=== PATIENT | male | born 1965 | race Caucasian/White ===

== ENCOUNTER 2018-03-06 08:37 | Outpatient (CLI) | payer OTHER ==
[2018-03-06 11:29] LABS: BASOPHILS % (AUTO) 0.3 %; EOSINOPHILS # (AUTO) 0.4 10^3/uL (0.0-0.7); EOSINOPHILS % (AUTO) 5.7 %; HGB - HEMOGLOBIN 14.4 g/dL (14.0-18.0); LYMPHOCYTES # (AUTO) 3.2 10^3/uL (1.5-3.5); LYMPHOCYTES % (AUTO) 51.3 %; MEAN CORPUSCULAR HEMOGLOBIN 29.1 pg (27.0-31.0); MEAN CORPUSCULAR HGB CONC 33.7 g/dL (32.0-36.0); MEAN CORPUSCULAR VOLUME 86.4 fL (80.0-94.0); MEAN PLATELET VOLUME 8.5 fL (7.4-11.4); MONOCYTES # (AUTO) 0.4 10^3/uL (0.0-1.0); MONOCYTES % (AUTO) 7.1 %; NEUTROPHILS # (AUTO) 2.2 10^3/uL (1.5-6.6); NEUTROPHILS % (AUTO) 35.6 %; PLT - PLATELET COUNT 219 10^3/uL (130-450); RED BLOOD COUNT 4.96 10^6/uL (4.70-6.10); RED CELL DISTRIBUTION WIDTH 13.6 % (12.0-15.0); WHITE BLOOD COUNT 6.2 x10^3/uL (4.8-10.8)
[2018-03-06 19:15] LABS: ALBUMIN 4.3 g/dL (3.2-5.5); ALBUMIN/GLOBULIN RATIO 1.4 (1.0-2.2); ALKALINE PHOSPHATASE 48 IU/L (42-121); ALT ALANINE AMINOTRANSFERASE 27 IU/L (10-60); AST ASPARTATE AMINOTRANSFERASE 28 IU/L (10-42); BILIRUBIN,TOTAL 0.5 mg/dL (0.2-1.0); BUN - BLOOD UREA NITROGEN 18 mg/dL (6-20); CALCIUM 9.5 mg/dL (8.5-10.3); CARBON DIOXIDE - CO2 27 mmol/L (21-32); CHLORIDE 102 mmol/L (101-111); CHOL/HDL RATIO 3.8 (<5.0); CHOLESTEROL 211 mg/dL; CREATININE 0.9 mg/dL (0.6-1.2); GFR - MDRD 89 (>89); GLUCOSE 104 mg/dL (70-100); HDL CHOLESTEROL 55 mg/dL; LDL CHOLESTEROL,CALCULATED 131 mg/dL; LDL/HDL RATIO 2.4 (<3.6); SODIUM 140 mmol/L (135-145); TOTAL PROTEIN 7.4 g/dL (6.7-8.2); VLDL CHOLESTEROL 25 mg/dL
== END 2018-03-06 08:38 | disposition home or self-care (01) ==
LOC: LAB.F 08:37
PROVIDERS: ATTEND Nurse Practitioner Family
DX: I10 Essential (primary) hypertension (principal); E78.1 Pure hyperglyceridemia; Z12.5 Encounter for screening for malignant neoplasm of prostate
CPT/HCPCS: 36415; 80053; 80061; 83721; 84153; 84443; 85025

== ENCOUNTER 2018-08-19 11:40 | Day surgery (SDC) | payer OTHER ==
[2018-08-19] MEDS ORDERED: LACTATED RINGERS 1,000 ML IV ONE (12:00)
[2018-08-19] MEDS ORDERED: fentaNYL 250 MCG/5 ML VIAL IVP ONE (13:18)
[2018-08-19] MEDS ORDERED: MIDAZOLAM 2 MG/2 ML VIAL IVP ONE (13:18)
[2018-08-19] MEDS ORDERED: PROPOFOL 200 MG/20 ML VIAL IVP ONE (13:37)
[2018-08-19] MEDS ORDERED: LIDOCAINE-MPF 2% 5 ML VIAL IM ONE (13:37)
[2018-08-19 14:47] VITALS: BP 104/74
== END 2018-08-19 11:41 | disposition home or self-care (01) ==
LOC: SDS 11:40
PROVIDERS: ATTEND Internal Medicine Gastroenterology
PROC: 0DBH8ZZ Excision of Cecum, Via Natural or Artificial Opening Endoscopic (ICD-10-PCS; principal; 2018-08-19 12:45)
DX: Z12.11 Encounter for screening for malignant neoplasm of colon (principal); D12.0 Benign neoplasm of cecum; F10.10 Alcohol abuse, uncomplicated; N40.1 Benign prostatic hyperplasia with lower urinary tract symptoms; N13.8 Other obstructive and reflux uropathy; I10 Essential (primary) hypertension; K21.9 Gastro-esophageal reflux disease without esophagitis; E78.00 Pure hypercholesterolemia, unspecified; E78.5 Hyperlipidemia, unspecified; J30.9 Allergic rhinitis, unspecified; M25.511 Pain in right shoulder; Z87.891 Personal history of nicotine dependence
CPT/HCPCS: 45380; J3010; J7120

== ENCOUNTER 2018-09-04 17:32 | Emergency (ER) | payer OTHER ==
[2018-09-04] MEDS ORDERED: SODIUM CHLORIDE 0.9% 1,000 ML IV ONE (17:57)
[2018-09-04] MEDS ORDERED: ONDANSETRON 4 MG/2 ML VIAL IVP STA (17:57)
[2018-09-04 18:09] LABS: BILIRUBIN,URINE NEGATIVE (NEGATIVE); GLUCOSE, URINE (UA) NEGATIVE (NEGATIVE); KETONES,URINE (UA) TRACE mg/dL (NEGATIVE); LEUKOCYTE ESTERASE, URINE NEGATIVE (NEGATIVE); NITRITE,URINE NEGATIVE (NEGATIVE); OCCULT BLOOD,URINE TRACE-INTA (NEGATIVE); PROTEIN,URINE NEGATIVE (NEGATIVE); UROBILINOGEN,URINE 0.2 (NORMAL) E.U./dL (NORMAL)
[2018-09-04 18:11] LABS: CLARITY,URINE CLEAR (CLEAR)
[2018-09-04] MEDS ORDERED: KETOROLAC 30 MG/ML VIAL IVP STA (18:11)
[2018-09-04 18:25] LABS: BASOPHILS % (AUTO) 0.2 %; EOSINOPHILS % (AUTO) 0.5 %; HGB - HEMOGLOBIN 14.9 g/dL (14.0-18.0); LYMPHOCYTES # (AUTO) 2.1 10^3/uL (1.5-3.5); LYMPHOCYTES % (AUTO) 23.9 %; MEAN CORPUSCULAR HEMOGLOBIN 28.8 pg (27.0-31.0); MEAN CORPUSCULAR HGB CONC 32.5 g/dL (32.0-36.0); MEAN CORPUSCULAR VOLUME 88.6 fL (80.0-94.0); MONOCYTES # (AUTO) 0.5 10^3/uL (0.0-1.0); MONOCYTES % (AUTO) 6.1 %; NEUTROPHILS % (AUTO) 69.1 %; PLT - PLATELET COUNT 232 10^3/uL (130-450); RED BLOOD COUNT 5.17 10^6/uL (4.70-6.10); RED CELL DISTRIBUTION WIDTH 13.1 % (12.0-15.0); WHITE BLOOD COUNT 8.7 x10^3/uL (4.8-10.8)
[2018-09-04 18:32] LABS: ALBUMIN 4.7 g/dL (3.2-5.5); ALBUMIN/GLOBULIN RATIO 1.4 (1.0-2.2); BILIRUBIN,TOTAL 0.8 mg/dL (0.2-1.0); CALCIUM 10.3 mg/dL (8.5-10.3); CREATININE 0.8 mg/dL (0.6-1.2); TOTAL PROTEIN 8.1 g/dL (6.7-8.2)
--- NOTE | 2018-09-04 18:52 | ED Physician Documentation ---
History of Present Illness - Stated complaint Stated Complaint: BODY PX/VOM/BLOODY STOOL - Chief complaint Chief Complaint: General - History obtained from History obtained from: Patient, Family - History of Present Illness Timing: How many days ago (2) Pain level max: 9 Pain level now: 9 - Additonal information Additional information: 53-year-old male was recently in [place]. He states that he is having all over body pain. Nausea and vomiting. Blood in the stool. Nothing makes it better or worse. Has not taken anything. Review of Systems Constitutional: reports: Chills, Myalgias. denies: Fever Throat: denies: Sore throat Respiratory: denies: Cough, Wheezing : denies: Dysuria Skin: denies: Rash Musculoskeletal: denies: Neck pain, Back pain Neurologic: denies: Headache PD PAST MEDICAL HISTORY - Past Medical History Past Medical History: Yes Cardiovascular: None Respiratory: None Endocrine/Autoimmune: None GI: None : Kidney stones HEENT: None Psych: None Musculoskeletal: None Derm: None - Past Surgical History Past Surgical History: Yes - Present Medications Home Medications: Ambulatory Orders Medication Instructions Recorded Confirmed Hydrocodone/Acetaminophen 1 - 2 each PO Q6H PRN #14 tablet 09/04/18 [Hydrocodon-Acetaminophen 5-325] Ondansetron Odt [Zofran] 4 mg TL Q6H PRN #10 tablet 09/04/18 - Allergies Allergies/Adverse Reactions: Allergies Allergy/AdvReac Type Severity Reaction Status Date / Time lisinopril Allergy Severe ANGIOEDEMA Verified 09/04/18 17:39 bee pollen Allergy Anaphylaxis Verified 09/04/18 17:39 - Social History Does the pt smoke?: No Smoking Status: Never smoker Does the pt drink ETOH?: Yes Does the pt have substance abuse?: No - Immunizations Immunizations are current?: No - POLST Patient has POLST: No PD ED PE NORMAL - Vitals Vital signs reviewed: Yes - General General: Alert and oriented X 3, No acute distress, Well developed/nourished - HEENT HEENT: PERRL, Moist mucous membranes - Neck Neck: Supple, no meningeal sign - Cardiac Cardiac: RRR, Strong equal pulses - Respiratory Respiratory: No respiratory distress, Clear bilaterally - Abdomen Abdomen: Soft, Non tender, Non distended, Other (diffuse TTP, no peritoneal sig ns) - Derm Derm: Warm and dry - Extremities Extremities: No edema, No calf tenderness / cord - Neuro Neuro: Alert and oriented X 3 - Psych Psych: Normal mood, Normal affect Results - Vitals Vitals: Vital Signs - 24 hr 09/04/18 09/04/18 09/04/18 17:35 19:31 20:42 Temperature 36.7 C 36.4 C L 37.0 C Heart Rate 80 63 61 Respiratory 16 20 16 Rate Blood Pressure 136/90 H 121/85 H 121/84 H O2 Saturation 96 97 97 Oxygen O2 Source Room air - Labs Labs: Laboratory Tests 09/04/18 09/04/18 09/04/18 17:44 18:12 18:12 WBC 8.7 RBC 5.17 Hgb 14.9 Hct 45.8 MCV 88.6 MCH 28.8 MCHC 32.5 RDW 13.1 Plt Count 232 MPV 10.0 Neut # (Auto) 6.0 Lymph # (Auto) 2.1 Payne # (Auto) 0.5 Eos # (Auto) 0.0 Baso # (Auto) 0.0 Absolute Nucleated RBC 0.00 Nucleated RBC % 0.0 Sodium 139 Potassium 4.0 Chloride 101 Carbon Dioxide 26 Anion Gap 12.0 BUN 17 Creatinine 0.8 Estimated GFR (MDRD) 101 Glucose 116 H Calcium 10.3 Total Bilirubin 0.8 AST 30 ALT 31 Alkaline Phosphatase 59 Total Protein 8.1 Albumin 4.7 Globulin 3.4 Albumin/Globulin Ratio 1.4 Lipase 51 Urine Color YELLOW Urine Clarity CLEAR Urine pH 6.0 Ur Specific [place] 1.020 Urine Protein NEGATIVE Urine Glucose (UA) NEGATIVE Urine Ketones TRACE Urine Occult Blood TRACE-INTA Urine Nitrite NEGATIVE Urine Bilirubin NEGATIVE Urine Urobilinogen 0.2 (NORMAL) Ur Leukocyte Esterase NEGATIVE Ur Microscopic Review NOT INDICATED Urine Culture Comments NOT INDICATED PD MEDICAL DECISION MAKING - ED course Complexity details: reviewed results, re-evaluated patient, considered differential, d/w patient, d/w family ED course: 53-year-old male is well-appearing, nontoxic. Afebrile. Feels better after IV fluids, pain medication and nausea medication. Tolerating p.o. without difficulty. Abdomen remains soft, nontender nondistended. No evidence of diverticulitis. Likely that this is a viral syndrome. He is not having diarrhea but did have one episode of mucousy stool with blood. We will hold antibiotics at this time and see how he progresses over the next 24 to 48 hours. If he worsens he will return and we will consider antibiotics at that stage. Patient and family counseled regarding signs and symptoms for which I believe and urgent re-evaluation would be necessary. Patient with good understanding of and agreement to plan and is comfortable going home at this time This document was made in part using voice recognition software. While efforts are made to proofread this document, sound alike and grammatical errors may occur. Departure - Departure Disposition: 01 Home, Self Care Clinical Impression: Viral syndrome Condition: Good Health Concerns: vomiting Plan of Treatment: zofran, IVF, pain control Care Goals: improve above Assessment: improved Instructions: ED Viral Syndrome Follow-Up: your,doctor in 3 days [Other] Prescriptions: Hydrocodone/Acetaminophen [Hydrocodon-Acetaminophen 5-325] 1 - 2 each PO Q6H PRN #14 tablet PRN Reason: pain Ondansetron Odt [Zofran] 4 mg TL Q6H PRN #10 tablet PRN Reason: Nausea / Vomiting Comments: Drink plenty of fluids and rest. Return if you worsen. Follow-up with your doctor for further care. Do not drink alcohol or drive while on narcotic pain medicine. Note that many narcotic pain relievers also contain tylenol/acetaminophen. Please ensure that your total dose of acetaminophen from all sources does not exceed 3 grams (3000mg) per day. You may constipated on this medication, take a stool softener such as "Colace" twice a day while you are on it. Also recommend a [id number] laxative such as senna or MiraLAX any day that you do not have a bowel movement. If you received narcotic pain medication in the emergency department, do not drive or operate machinery for the next 24 hours. Discharge Date/Time: 09/04/18 20:56
[2018-09-04] MEDS ORDERED: MAG HYDROX/AL HYDROX/SIMETH 30 ML UDC PO STA (19:48)
[2018-09-04] MEDS ORDERED: MORPHINE 2 MG/ML CARPUJECT IVP STA (19:48)
[2018-09-04 20:43] VITALS: BP 121/84
[2018-09-04] MEDS ORDERED: ONDANSETRON ODT 4 MG Prepack 2 TL PRN (20:51)
== END 2018-09-04 20:56 | disposition home or self-care (01) ==
LOC: ED 17:32
DX: B34.9 Viral infection, unspecified (principal)
CPT/HCPCS: 36415; 80053; 81003; 83690; 85025; 96361; 96374; 96375; 99283; 99284; A9270; 81001; 87086

== ENCOUNTER 2019-01-27 00:44 | Outpatient (CLI) | payer OTHER | END 2019-01-27 00:45 | disposition critical access hospital (66) | LOC: EMS 00:44 | PROVIDERS: ATTEND Surgery | DX: S01.112A Laceration without foreign body of left eyelid and periocular area, initial encounter (principal); W22.01XA Walked into wall, initial encounter; Y93.01 Activity, walking, marching and hiking | CPT/HCPCS: A0425; A0429 ==

== ENCOUNTER 2019-01-27 04:11 | Outpatient (CLI) | payer OTHER | END 2019-01-27 04:12 | disposition short-term general hospital (02) | LOC: EMS 04:11 | PROVIDERS: ATTEND Surgery | DX: S01.112A Laceration without foreign body of left eyelid and periocular area, initial encounter (principal); S05.92XA Unspecified injury of left eye and orbit, initial encounter; W22.01XA Walked into wall, initial encounter | CPT/HCPCS: A0425; A0429 ==

== ENCOUNTER 2019-06-04 09:14 | Outpatient (CLI) | payer BC ==
[2019-06-04 17:11] LABS: BASOPHILS % (AUTO) 0.6 %; EOSINOPHILS # (AUTO) 0.3 10^3/uL (0.0-0.7); EOSINOPHILS % (AUTO) 5.1 %; HGB - HEMOGLOBIN 13.8 g/dL (14.0-18.0); LYMPHOCYTES % (AUTO) 45.4 %; MEAN CORPUSCULAR HEMOGLOBIN 28.6 pg (27.0-31.0); MEAN CORPUSCULAR HGB CONC 31.7 g/dL (32.0-36.0); MEAN CORPUSCULAR VOLUME 90.5 fL (80.0-94.0); MEAN PLATELET VOLUME 10.8 fL (7.4-11.4); MONOCYTES # (AUTO) 0.4 10^3/uL (0.0-1.0); MONOCYTES % (AUTO) 6.8 %; NEUTROPHILS # (AUTO) 2.7 10^3/uL (1.5-6.6); NEUTROPHILS % (AUTO) 41.8 %; PLT - PLATELET COUNT 271 10^3/uL (130-450); RED BLOOD COUNT 4.82 10^6/uL (4.70-6.10); RED CELL DISTRIBUTION WIDTH 13.4 % (12.0-15.0); WHITE BLOOD COUNT 6.5 x10^3/uL (4.8-10.8)
[2019-06-04 17:30] LABS: ALBUMIN 4.3 g/dL (3.2-5.5); ALBUMIN/GLOBULIN RATIO 1.4 (1.0-2.2); ALKALINE PHOSPHATASE 50 IU/L (42-121); ALT ALANINE AMINOTRANSFERASE 24 IU/L (10-60); AST ASPARTATE AMINOTRANSFERASE 25 IU/L (10-42); BILIRUBIN,TOTAL 0.6 mg/dL (0.2-1.0); BUN - BLOOD UREA NITROGEN 25 mg/dL (6-20); CALCIUM 9.3 mg/dL (8.5-10.3); CARBON DIOXIDE - CO2 27 mmol/L (21-32); CHLORIDE 104 mmol/L (101-111); CHOL/HDL RATIO 4.4 (<5.0); CHOLESTEROL 197 mg/dL; CREATININE 0.8 mg/dL (0.6-1.2); GLUCOSE 108 mg/dL (70-100); HDL CHOLESTEROL 45 mg/dL; LDL CHOLESTEROL,CALCULATED 118 mg/dL; LDL/HDL RATIO 2.6 (<3.6); SODIUM 136 mmol/L (135-145); TOTAL PROTEIN 7.3 g/dL (6.7-8.2); VLDL CHOLESTEROL 34 mg/dL
== END 2019-06-04 09:15 | disposition home or self-care (01) ==
LOC: LAB.S 09:14
PROVIDERS: ATTEND Physician Assistant
DX: I10 Essential (primary) hypertension (principal); Z79.899 Other long term (current) drug therapy; E78.70 Disorder of bile acid and cholesterol metabolism, unspecified
CPT/HCPCS: 36415; 80053; 80061; 83721; 84443; 85025

== ENCOUNTER 2020-05-07 18:23 | Emergency (ER) | payer BC ==
[2020-05-07] MEDS ORDERED: GLUCAGON 1 MG/ML VIAL IVP STA (18:31)
--- NOTE | 2020-05-07 18:32 | ED Physician Documentation ---
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 Since then he has had occasional problems with esophageal food impactions. It had been more frequent closer to the tracheostomy but now seems to be still having every couple of months. He usually is able to clear it on his own by just drinking water and giving it some time but this time he has not. He has had a sensation of stuck steak sandwich in his chest since he ate a steak sandwich at noon today. He cannot swallow his secretions or drink any water because it comes right back up. Review of Systems Ten Systems: 10 systems reviewed and negative Constitutional: reports: Reviewed and negative Ears: reports: Reviewed and negative Nose: reports: Reviewed and negative PD PAST MEDICAL HISTORY - Past Medical History Cardiovascular: None Respiratory: None Endocrine/Autoimmune: None GI: None : Kidney stones HEENT: None Psych: None Musculoskeletal: None Derm: None - Past Surgical History Past Surgical History: Yes - Present Medications Home Medications: Ambulatory Orders Medication Instructions Recorded Confirmed Hydrocodone/Acetaminophen 1 - 2 each PO Q6H PRN #14 tablet 09/04/18 [Hydrocodon-Acetaminophen 5-325] Ondansetron Odt [Zofran] 4 mg TL Q6H PRN #10 tablet 09/04/18 - Allergies Allergies/Adverse Reactions: Allergies Allergy/AdvReac Type Severity Reaction Status Date / Time lisinopril Allergy Severe ANGIOEDEMA Verified 01/27/19 01:20 bee pollen Allergy Anaphylaxis Verified 01/27/19 01:20 - Social History Does the pt smoke?: No Smoking Status: Never smoker Does the pt drink ETOH?: Yes Does the pt have substance abuse?: No - Immunizations Immunizations are current?: No - POLST Patient has POLST: No PD ED PE NORMAL - Vitals Vital signs reviewed: Yes - General General: Alert and oriented X 3, No acute distress - HEENT HEENT: Pharynx benign - Neck Neck: Supple, no meningeal sign, No bony TTP - Cardiac Cardiac: RRR, No murmur - Respiratory Respiratory: No respiratory distress, Clear bilaterally - Abdomen Abdomen: Soft, Non tender - Back Back: No CVA TTP, No spinal TTP - Derm Derm: Normal color, Warm and dry - Extremities Extremities: No edema, No calf tenderness / cord - Neuro Neuro: Alert and oriented X 3, Normal speech Results - Vitals Vitals: Vital Signs - 24 hr 05/07/20 05/07/20 18:32 19:18 Temperature 36.8 C Heart Rate 90 89 Respiratory 18 18 Rate Blood Pressure 138/92 H 120/97 H O2 Saturation 99 99 Oxygen O2 Source Room air PD MEDICAL DECISION MAKING - ED course ED course: 55-year-old gentleman with recurrent esophageal food bolus impactions presents with same. Initially treated with glucagon and then nitro, potentially initially without relief but subsequently he was able to tolerate liquids. We had actually started the process of mobilizing the surgeon to take him to the OR but after he apparently passed the food impaction this was called off but discussed with him that he would still need a nonurgent endoscopy and he should be on a soft diet until then. Departure - Departure Disposition: 01 Home, Self Care Clinical Impression: Esophageal obstruction due to food impaction Condition: Stable Record reviewed to determine appropriate education?: Yes Instructions: ED Foreign Body Esophageal Rslv Follow-Up: Chun Marshall MD [Provider Admit Priv/Credential] - Comments: As discussed, you still need to follow-up with the surgeon for scheduling of a nonurgent endoscopy. Until then avoid steak, and I would do a liquid diet for the next couple of days. Return if worse.
[2020-05-07] MEDS ORDERED: NITROGLYCERIN SL 0.4 MG TABLET SL STA (18:54)
[2020-05-07 19:19] VITALS: BP 120/97
== END 2020-05-07 20:00 | disposition home or self-care (01) ==
LOC: ED 18:23
DX: T18.128A Food in esophagus causing other injury, initial encounter (principal); X58.XXXA Exposure to other specified factors, initial encounter
CPT/HCPCS: 96374; 99283; 99284; A9270

== ENCOUNTER 2021-12-08 10:44 | Outpatient (CLI) | payer BC ==
[2021-12-12 14:08] LABS: FREE TESTOSTERONE(DIRECT) 6.2 pg/mL (7.2-24.0)
== END 2021-12-08 10:45 | disposition home or self-care (01) ==
LOC: LAB.S 10:44
PROVIDERS: ATTEND Physician Assistant Medical
DX: N52.9 Male erectile dysfunction, unspecified (principal); Z12.5 Encounter for screening for malignant neoplasm of prostate
CPT/HCPCS: 36415; 84153; 84402; 84403

== ENCOUNTER 2022-05-19 14:03 | Day surgery (SDC) | payer BC ==
[2022-05-19] MEDS ORDERED: NITROGLYCERIN SL 0.4 MG TABLET SL STA (14:46)
--- OUTSIDE RECORDS SUMMARY | 2022-05-19 14:51 | EXTERNAL MEDICAL SUMMARY RPT | Continuity of Care Document ---
:1965 Author Organization [facility] Address [address] [place] [address] Phone Care Team Providers Name Role Phone Unavailable Unavailable Unavailable Abel Tellers Supervisor Enp, Erika Unavailable Unavailable Allergies No information. Encounters No information. Functional Status No information. Immunizations No information. Medications date description facility 2022-05-19 00:00 alfuzosin [facility] [place] 2022-05-19 00:00 alfuzosin [facility] [place] 2022-05-19 00:00 alfuzosin [facility] [place] 2022-05-19 00:00 alfuzosin [facility] [place] Problems date description facility 2022-05-19 00:00 Osteoarthritis [facility] 2022-05-19 00:00 Foreign body in esophagus [facility] 2022-05-19 00:00 Osteoarthrosis, unspecified whether [facility] & generalized or localized, involving [facility] [place] unspecified site 2022-05-19 00:00 Lateral epicondylitis [facility] 2022-05-19 00:00 Olecranon bursitis [facility] 2022-05-19 00:00 Unspecified osteoarthritis, [facility] & unspecified site [facility] 2022-05-19 00:00 Other bursitis of elbow, right [facility] & elbow [facility] 2022-05-19 00:00 Lateral epicondylitis, unspecified [facility] elbow [facility] 2022-05-19 00:00 Unspecified foreign body in [facility] & esophagus causing other injury, [facility] [place] initial encounter Procedures date description facility 2022-05-19 00:00 Visit Code Hold [facility] [place] Results/Labs No information. Social History date description facility 2022-05-19 00:00 Former smoker [facility] [place] Vital Signs date measurement value units 2022-05-19 00:00 BMI 23.93 kg/m2 2022-05-19 00:00 BP_diastolic 76 mmHg 2022-05-19 00:00 BP_systolic 107 mmHg 2022-05-19 00:00 heart_rate 62 /min 2022-05-19 00:00 height_metric 168.91 cm 2022-05-19 00:00 height_standard 66.5 in 2022-05-19 00:00 respiration_rate 16 /min 2022-05-19 00:00 temperature_metric 36.39 C 2022-05-19 00:00 temperature_standard 97.5 F 2022-05-19 00:00 weight_metric 68.04 kg 2022-05-19 00:00 weight_standard 150 lb
--- NOTE | 2022-05-19 15:29 | ED Physician Documentation ---
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 He had this in 2016 and since then he has had food gets stuck on the way down and he has had 2 episodes where food would not pass. He was treated in the emergency department with nitroglycerin and soda and at that time he had resolution. He subsequently attempted the same maneuver when this recurred and at that time the bolus would not pass and he had had to go to the operating room. Review of Systems Constitutional: denies: Fever Eyes: denies: Decreased vision Ears: denies: Ear pain Nose: denies: Congestion Throat: denies: Sore throat Cardiac: reports: Chest pain / pressure. denies: Palpitations Respiratory: denies: Dyspnea, Cough GI: reports: Vomiting. denies: Abdominal Pain, Nausea : denies: Dysuria, Frequency PD PAST MEDICAL HISTORY - Past Medical History Cardiovascular: None Respiratory: None Endocrine/Autoimmune: None GI: None : Kidney stones HEENT: None Psych: None Musculoskeletal: None Derm: None - Past Surgical History Past Surgical History: Yes - Present Medications Home Medications: Ambulatory Orders Medication Instructions Recorded Confirmed Alfuzosin HCl [Alfuzosin HCl ER] 10 mg ORAL ONCE 05/19/22 05/19/22 Omeprazole 40 mg PO DAILY #30 cap 05/19/22 - Allergies Allergies/Adverse Reactions: Allergies Allergy/AdvReac Type Severity Reaction Status Date / Time lisinopril Allergy Severe ANGIOEDEMA Verified 08/14/21 14:27 bee pollen Allergy Anaphylaxis Verified 08/14/21 14:27 - Social History Does the pt smoke?: No Smoking Status: Never smoker Does the pt drink ETOH?: Yes Does the pt have substance abuse?: No - Immunizations Immunizations are current?: No - POLST Patient has POLST: No PD ED PE NORMAL - Vitals Vital signs reviewed: Yes (normal ) - General General: Alert and oriented X 3, No acute distress, Well developed/nourished - HEENT HEENT: Atraumatic, PERRL, EOMI - Neck Neck: Supple, no meningeal sign, No bony TTP - Cardiac Cardiac: RRR, No murmur - Respiratory Respiratory: No respiratory distress, Clear bilaterally - Abdomen Abdomen: Soft, Non tender - Back Back: No CVA TTP, No spinal TTP - Derm Derm: Normal color, Warm and dry, No rash - Extremities Extremities: No deformity, No edema - Neuro Neuro: Alert and oriented X 3, shelter monitor 2-12 intact, No motor deficit, No sensory deficit, Normal speech Eye Opening: Spontaneous Motor: Obeys Commands Verbal: Oriented GCS Score: 15 - Psych Psych: Normal mood, Normal affect Results - Vitals Vitals: Vital Signs - 24 hr 05/19/22 05/19/22 14:24 16:29 Temperature 36.8 C Heart Rate 74 67 Respiratory 18 16 Rate Blood Pressure 127/79 120/81 H O2 Saturation 98 97 Oxygen O2 Source Room air PD Medical Decision Making - ED course Complexity details: reviewed old records, reviewed results, re-evaluated patient, considered differential, d/w patient ED course: 57-year-old male with a prior history of esophageal food impaction has some esophageal food impaction again. He has had symptoms for 23 hours. He presents today with chest pain associated with food impaction and vomiting of anything that he puts into his mouth. Here in the emergency department we attempted nitroglycerin and soda without resolution. I consulted our surgeon Dr. Alonso who came to the emergency department and assumed care of the patient took the patient to the operating room for removal of esophageal food impaction. Departure - Departure Disposition: ED Transfer to [facility] Clinical Impression: Food impaction of esophagus Qualifiers: Encounter type: initial encounter Qualified Code(s): T18.128A - Food in esophagus causing other injury, initial encounter Discharge Date/Time: 05/19/22 16:49
[2022-05-19] MEDS ORDERED: PROPOFOL 200 MG/20 ML VIAL IVP ONE ×2 (15:54→16:33)
[2022-05-19] MEDS ORDERED: SODIUM CHLORIDE FLUSH 0.9% 10 ML SYRINGE IVP PRN (15:55)
[2022-05-19] MEDS ORDERED: SODIUM CHLORIDE 0.9% 1,000 ML IV SCH (16:00)
--- NOTE | 2022-05-19 16:05 | HISTORY & PHYSICAL EXAMINATION ---
Chief Complaint - Chief Complaint Chief Complaint: Food stuck in throat History of Present Illness - Admitted From Admitted From:: ED - History Obtained From Records Reviewed: Yes History obtained from: Patient Exam Limitations: None - History of Present Illness HPI Comment/Other: Eligio is a 57 year old male who suffered a blockage of his esophagus while eating a pork burrito yesterday at noon. This has happened to him ablut once a month and he has usually been able to clear the blockage with liquids. In July of last year he required endoscopic disimpaction. This recent event has not resolved so he brought himself to the ED for evaluation and management. Eligio denies SOB but has mild chest and back spasms when he vomits. He is unable to swallow his secretions. 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) : reports: Kidney stones, Other HEENT: reports: None Psych: reports: None Musculoskeletal: reports: None Derm: reports: None MRSA Hx?: No - POLST Patient has POLST: No Meds/Allgy - Home Medications Home Medications: Ambulatory Orders Medication Instructions Recorded Confirmed Alfuzosin HCl [Alfuzosin HCl ER] 10 mg ORAL ONCE 05/19/22 05/19/22 - Allergies Allergies/Adverse Reactions: Allergies Allergy/AdvReac Type Severity Reaction Status Date / Time lisinopril Allergy Severe ANGIOEDEMA Verified 08/14/21 14:27 bee pollen Allergy Anaphylaxis Verified 08/14/21 14:27 Review of Systems - Gastrointestinal Gastrointestinal: reports: Other (Unable to swallow secretions or food) Exam - Vital Signs Vital Signs: Vital Signs x48h Temp Pulse Resp BP Pulse Ox 05/19/22 14:24 98.2 F 74 18 127/79 98 - Physical Exam General Appearance: positive: Mild distress Eyes Bilateral: positive: Normal inspection, PERRL ENT: positive: ENT inspection nml, Pharynx nml Neck: positive: Other (Anterior scar from prior tracheostomy) Respiratory: positive: Chest non-tender, No respiratory distress, Breath sounds nml Cardiovascular: positive: Regular rate & rhythm, No murmur Peripheral Pulses: positive: 2+ Abdomen: positive: Non-tender, Nml bowel sounds, No distention Skin: positive: Color nml, No rash, Warm Extremities: positive: Non-tender, Full ROM, Nml appearance Neurologic/Psychiatric: positive: Oriented x3 Conclusion/Plan - Other Other Results/Comments: Assessment: 1) Meat impaction of esophagus Plan: 1) Endoscopic disimpaction with possible dilation under GETA Consent: Eligio has been counseled for the procedure, it's indications, risks, benefits and expected outcome as well as alternative therapies. We specifically discussed risks associated with anesthesia, injury to surrounding structures which may require additional surgery. Eligio understands, agrees, and consents to the proposed operative strategy and requests that we proceed with the procedure as outlined in our discussion. Ventura Alonso MD General Surgery Service
[2022-05-19] MEDS ORDERED: LIDOCAINE-PF 2% 10 ML AMP SUBQ ONE (16:33)
[2022-05-19] MEDS ORDERED: fentaNYL 100 MCG/2 ML VIAL ONE (16:33)
[2022-05-19] MEDS ORDERED: ONDANSETRON 4 MG/2 ML VIAL ONE (16:33)
[2022-05-19] MEDS ORDERED: MIDAZOLAM 2 MG/2 ML VIAL ONE (16:33)
[2022-05-19] MEDS ORDERED: SODIUM CHLORIDE FLUSH 0.9% 10 ML SYRINGE IVP SCH (17:00)
[2022-05-19] MEDS ORDERED: SUGAMMADEX 200 MG/2 ML VIAL IVP ONE (17:37)
--- NOTE | 2022-05-19 17:44 | OPERATIVE REPORT ---
Operative Report - Other Other Information/Narrative: SURGEON: Dipak Alonso MD, [facility] PREOPERATIVE DIAGNOSIS: Eligio is a 57 year old male with an esophageal obstruction due to a meat impaction POSTOPERATIVE DIAGNOSIS: Meat impaction distal esophagus; Distal esophageal narrowing NAME OF PROCEDURE: Esophagoscopy with disimpaction of the esophagus and dilation of the esophagus to 14 F using sequential wire-guided dilators ANESTHESIA: GETA DESCRIPTION OF PROCEDURE FOLLOWS: After consent for the procedure was obtained, the patient was brought to the operating room where, in the supine position GETA was administered. The patient was placed into the left lateral decubitus position with the head of the bed raised. A bite block was used to protect the teeth. A Pentax upper endoscope was gently inserted into the esophagus and the examination was begun. The esophageal mucosa was []normal. There was a large, fibrous meat bolus in the distal esophagus that was completely removed using multiple passes of a triple prong grasper to pull the meat from the esophagus out through the oral cavity. The Z line was at 38 cm and the GEJ was wide enough to permit passage of the endoscope into the gastric lumen. Fluid was aspirated and retroflexed view of the GEJ was normal. A guidewire was placed through the endoscope into the gastric lumen and the endoscope was removed. The esophagus was dilated to 14F using sequential savory dilators over the guidewire. The guidewire was removed and the endoscope reinserted. There was no evidence of food particles in the esophagus and the GEJ easily permitted passage of the endoscope into the gastric lumen. the endoscope was removed and the patient was awakened from GETA. he was brought to the in stable condition after tolerating the procedure well. ASSESSMENT: Meat impaction of the distal esophagus with narrowing of the GEJ. No evidence of esophagitis, neoplasm, or web so this may be early onset achalasia. RECOMMENDATION: Chew food thoroughly Drink plenty of fluids when swallowing If symptoms recur, UGI study should be considered and if abnormal, referral to GI Medicine for esophageal manometry. Ventura Alonso MD General Surgery Service
[2022-05-19] MEDS ORDERED: LACTATED RINGERS 1,000 ML IV ONE (17:52)
--- NOTE | 2022-05-19 18:03 | ANESTHESIA ---
Pre-Anesthesia VS, & Labs - Diagnosis food bolus - Procedure EGD Vital Signs: Temp Pulse Resp BP Pulse Ox O2 Flow Rate 36.0 C L 80 14 116/95 H 97 05/19/22 17:50 05/19/22 17:50 05/19/22 17:50 05/19/22 17:50 05/19/22 17:50 Height: 5 ft 8 in Weight (kg): 70.307 kg Body Mass Index: 23.6 BMI Classification: Normal - NPO >8 hours, Other Last Fluid Intake: 2hrs pre-op Last Food Intake: 1200 05/18/22 Home Medications and Allergies Home Medications: Ambulatory Orders Alfuzosin HCl [Alfuzosin HCl ER] 10 mg ORAL ONCE 05/19/22 Active Medications Sodium Chloride (Normal Saline 0.9%) 1,000 mls @ 100 mls/hr IV .Q10H STAR Last Admin: 05/19/22 16:14 Dose: 100 mls/hr Sodium Chloride (Sodium Chloride Flush 0.9% 10 Ml Syringe) 10 ml IVP PRN PRN PRN Reason: NEEDED PER PROVIDER ORDERS Sodium Chloride (Sodium Chloride Flush 0.9% 10 Ml Syringe) 10 ml IVP 0100,0900,1700 [facility] Alfuzosin HCl [Alfuzosin HCl ER] 10 mg ORAL ONCE 05/19/22 Allergies/Adverse Reactions: Allergies Allergy/AdvReac Type Severity Reaction Status Date / Time lisinopril Allergy Severe ANGIOEDEMA Verified 08/14/21 14:27 bee pollen Allergy Anaphylaxis Verified 08/14/21 14:27 Anes History & Medical History - Anesthetic History Anesthesia Complications: reports: No previous complications Family history of Anesthesia Complications: Denies Family history of Malignant Hyperthermia: Denies - Medical History Cardiovascular: reports: None Pulmonary: reports: None Gastrointestinal: reports: None Urinary: reports: Kidney stones Musculoskeletal: reports: None Endocrine/Autoimmune: reports: None Blood Disorders: reports: None Skin: reports: None Smoking Status: Never smoker - Surgical History General: reports: EGD Exam General: Alert, Oriented x3, Cooperative Dental: Other (full implants upper and lower) Neck Mobility: Normal Mallampati classification: II Thyromental Distance: 4-6 cm Respiratory: Lungs clear Cardiovascular: Regular rate Plan Anesthesia Type: General Consent for Procedure(s) Verified and Reviewed: Yes Code Status: Attempt Resuscitation ASA classification: 2-Mild systemic disease Is this case an emergency?: Yes
[2022-05-19] MEDS ORDERED: HYDROmorphone 0.5 MG/0.5 ML SYRINGE IVP PRN (18:05)
[2022-05-19] MEDS ORDERED: METOCLOPRAMIDE 10 MG/2 ML VIAL IVP PRN (18:05)
[2022-05-19] MEDS ORDERED: ONDANSETRON 4 MG/2 ML VIAL IVP PRN (18:05)
[2022-05-19] MEDS ORDERED: ATROPINE ABBOJECT 1 MG/10 ML SYRINGE IVP PRN (18:05)
[2022-05-19] MEDS ORDERED: NALOXONE 0.4 MG/ML VIAL IVP PRN (18:05)
[2022-05-19] MEDS ORDERED: ePHEDrine 50 MG/ML VIAL IVP PRN (18:05)
[2022-05-19] MEDS ORDERED: fentaNYL 100 MCG/2 ML VIAL IVP PRN (18:05)
[2022-05-19] MEDS ORDERED: MORPHINE 2 MG/ML CARPUJECT IVP PRN (18:05)
--- NOTE | 2022-05-19 18:06 | ANESTHESIA POST OP EVALUATION ---
Anesthesia Post Eval - Post Anesthesia Eval Vitals: Last Vital Signs Temp 36.3 C L 05/19/22 18:02 Pulse 80 05/19/22 18:02 Resp 18 05/19/22 18:02 BP 123/83 H 05/19/22 18:02 Pulse Ox 100 05/19/22 18:02 O2 Flow Rate CV Function Including HR & BP: Stable Pain Control: Satisfactory Nausea & Vomiting: Negative Mental Status: Baseline Respiratory Status: Airway Patent Hydration Status: Satisfactory Anesthesia Complications: None
[2022-05-19] MEDS ORDERED: LACTATED RINGERS 1,000 ML IV SCH (19:00)
[2022-05-19 19:08] VITALS: BP 123/67
== END 2022-05-19 19:45 | disposition home or self-care (01) ==
LOC: ED 14:03 → SDS 15:53 → MS2 18:47 → SDS 19:45
PROVIDERS: ATTEND Surgery
PROC: 0D738ZZ Dilation of Lower Esophagus, Via Natural or Artificial Opening Endoscopic (ICD-10-PCS; 2022-05-19)
PROC: 0DC38ZZ Extirpation of Matter from Lower Esophagus, Via Natural or Artificial Opening Endoscopic (ICD-10-PCS; principal; 2022-05-19 17:00)
DX: T18.128A Food in esophagus causing other injury, initial encounter (principal); K22.10 Ulcer of esophagus without bleeding; K22.2 Esophageal obstruction
CPT/HCPCS: 36415; 43247; 43248; 99284; 99285; A9270; J7120